=== PATIENT | male | born 1985 | race Caucasian/White ===

== ENCOUNTER → 2023-02-25 11:40 | Outpatient (CLI) | payer OTHER, SELFPAY ==
--- NOTE | 2023-02-25 | DI.CT.S_ITS ---
PROCEDURE: CT ANGIO NECK INDICATIONS: EVALUATE FOR LINEAR ECHOGENITY TECHNIQUE: After the administration of intravenous contrast, 1.5 mm axial sections acquired from the aortic arch to the [place]. Maximum intensity projection (MIP) reformats were then performed. COMPARISON: [facility], , [place] CAROTID DOPPLER, 11/30/2022, 16:31. FINDINGS: Image quality: Diagnostic. Carotid system: The great vessels demonstrate a conventional anatomy as they arise from the aortic arch. The origins of the common carotid arteries appear patent. In this patient with this given history, scrutiny is given to the proximal right common carotid artery. No significant abnormality can be seen of the proximal right common carotid artery. The common carotid arteries appear normal. The bifurcation regions appear normal bilaterally. The internal carotid arteries demonstrate normal caliber and course. Posterior circulation: The origins of the vertebral arteries appear patent. The more superior portions of the vertebral arteries demonstrate normal course and caliber. The left vertebral artery is dominant to the right. No significant abnormality of the basilar artery is identified. Soft tissues: Visualized neck soft tissues demonstrate no suspicious abnormalities. The thyroid gland demonstrates no significant abnormality. Bones: No suspicious bony lesions. Visualized cervical spine appears normally aligned. IMPRESSION: No significant abnormality can be seen involving the right common carotid artery at the site of the ultrasound abnormality. The ultrasound abnormality is attributed to artifact. Within the arteries of the neck, no hemodynamically significant stenosis can be seen. Any quantitative stenosis measurements were performed using the NASCET criteria. Dictated by: Denys Gambino M.D. on 02/25/2023 at 16:14 Approved by: Denys Gambino M.D. on 02/25/2023 at 16:16
== END ==
LOC: CT 11:42
DX: R93.89 Abnormal findings on diagnostic imaging of other specified body structures (principal)
CPT/HCPCS: 70498; Q9967